=== PATIENT | male | born 1995 | race American Indian/Alaskan Native ===

== ENCOUNTER 2021-03-19 19:35 | Emergency (ER) | payer SELFPAY ==
[2021-03-19 22:17] VITALS: BP 133/81
--- NOTE | 2021-03-19 22:18 | Emergency Department Report ---
ED Head Trauma HPI - General Chief complaint: Head Injury Stated complaint: PASSED OUT 2 DAYS AGO/HEAD FEELING FUNNY Source: patient Mode of arrival: Ambulatory Limitations: No Limitations - History of Present Illness Initial comments: Patient is a 25-year-old -Japanese male with no past medical history presents to the ED for evaluation after getting drunk and having syncopal episode, hitting his head 4 days ago. Patient states that he came to the ED for evaluation because he has been feeling mild posterior scalp discomfort on palpation. Patient states that he was at a [employer] party and drank a lot of alcohol and in the process while seated on talking to friends he fell on the floor but woke up thereafter about 1 minute later. Patient states that since that injury, he has not had any nausea, vomiting, dizziness, syncope, chest pain or shortness of breath, neck pain, change in vision, lack of appetite, change in speech, seizures, loss of consciousness, numbness and tingling or weakness of upper and lower extremities bilaterally. MD Complaint: head injury, other (wanted evaluation for a head injury 4 days ago) -: Sudden, days(s) (4) Arrival Conditions: Negative: C-spine immobilization present, spinal board immobilization present Mechanism of Injury: mechanical fall Location: occipital Loss of Consciousness: unsure (was intoxicated) Previous Trauma to this Area: No Place: home Radiation: none Severity: mild (no pain) Severity scale (0 -10): 0 Consistency: now resolved Provoking factors: none known Other Injuries: none Associated Symptoms: denies other symptoms. denies: confusion, amnesia, repetitive questioning, vision changes, nausea, vomiting, vertigo, syncope, numbness, weakness, neck pain, other - Related Data Allergies/Adverse reactions: Allergies Allergy/AdvReac Type Severity Reaction Status Date / Time No Known Allergies Allergy Unverified 03/19/21 22:08 ED Review of Systems ROS: Stated complaint: PASSED OUT 2 DAYS AGO/HEAD FEELING FUNNY Other details as noted in HPI Constitutional: denies: chills, fever Eyes: denies: eye pain, eye discharge, vision change ENT: other (Mild posterior scalp discomfort). denies: ear pain, throat pain Respiratory: denies: cough, shortness of breath, wheezing Cardiovascular: denies: chest pain, palpitations Endocrine: no symptoms reported Gastrointestinal: denies: abdominal pain, nausea, diarrhea Genitourinary: denies: urgency, dysuria Musculoskeletal: denies: back pain, joint swelling, arthralgia Skin: denies: rash, lesions Neurological: denies: headache, weakness, paresthesias Psychiatric: denies: anxiety, depression Hematological/Lymphatic: denies: easy bleeding, easy bruising ED Past Medical Hx - Past Medical History Previous Medical History?: No - Surgical History Past Surgical History?: No ED Physical Exam - General Limitations: No Limitations General appearance: alert, in no apparent distress - Head Head exam: Present: atraumatic, normocephalic, normal inspection - Eye Eye exam: Present: normal appearance, PERRL, EOMI Pupils: Present: normal accommodation - ENT ENT exam: Present: normal exam, normal orophraynx, mucous membranes moist, TM's normal bilaterally, normal external ear exam - Neck Neck exam: Present: normal inspection, full ROM - Respiratory Respiratory exam: Present: normal lung sounds bilaterally. Absent: respiratory distress, wheezes, rales, stridor, chest wall tenderness, accessory muscle use, decreased breath sounds, prolonged expiratory - Cardiovascular Cardiovascular Exam: Present: regular rate, normal rhythm, normal heart sounds. Absent: systolic murmur, diastolic murmur, rubs, gallop - GI/Abdominal GI/Abdominal exam: Present: soft, normal bowel sounds. Absent: tenderness, guarding, hyperactive bowel sounds, hypoactive bowel sounds, organomegaly - Extremities Exam Extremities exam: Present: normal inspection, full ROM, normal capillary refill - Back Exam Back exam: Present: normal inspection, full ROM. Absent: tenderness, CVA tenderness (R), CVA tenderness (L), muscle spasm, paraspinal tenderness, vertebral tenderness - Neurological Exam Neurological exam: Present: alert, oriented X3, CN II-XII intact, normal gait, reflexes normal - Psychiatric Psychiatric exam: Present: normal affect, normal mood - Skin Skin exam: Present: warm, dry, intact, normal color. Absent: rash ED Course Vital Signs 03/19/21 22:09 Temperature 98.6 F Pulse Rate 77 Respiratory 18 Rate Blood Pressure 133/81 O2 Sat by Pulse 98 Oximetry - Medical Decision Making This is a 25-year-old -Japanese male with no past medical history presents to the ED for evaluation after getting drunk and having syncopal episode, hitting his head 4 days ago. Patient states that he came to the ED for evaluation because he has been feeling mild posterior scalp discomfort on palpation. Patient states that he was at a [employer] party and drank a lot of alcohol and in the process while seated on talking to friends he fell on the floor but woke up thereafter about 1 minute later. In the ED, patient is alert and oriented x3 and is not in any distress. Patient is hemodynamically stable. Physical exam is unremarkable and patient is fully ambulatory and has not had any neurological symptoms in the last 4 days after his head injury. Patient was discharged home and advised to follow-up with his primary care physician as needed. Patient was otherwise advised return to the ED immediately should he develop any headache, dizziness, syncope, seizures, shortness of breath, change in vision or neck pain. - Differential Diagnosis Scalp contusion; well adult exam - Core Measures AMI Core Measures Followed: No Measure Exclusions: not indicated - NEXUS Criteria Focal neurological deficit present: No Midline spinal tenderness present: No Altered level of consciousness: No Intoxication present: No Distracting injury present: No NEXUS results: C-Spine can be cleared clinically by these results. Imaging is not required. Critical care attestation.: If time is entered above; I have spent that time in minutes in the direct care of this critically ill patient, excluding procedure time. ED Disposition Clinical Impression: Contusion of scalp Qualifiers: Encounter type: initial encounter Qualified Code(s): S00.03XA - Contusion of sc alp, initial encounter Disposition: HOME / SELF CARE / HOMELESS Is pt being admited?: No Does the pt Need Aspirin: No Condition: Stable Instructions: Facial or Scalp Contusion, [id number] Additional Instructions: Follow-up with your primary care physician as needed. Return to the ED immediately if symptoms get worse. Referrals: [facility] [Provider Group] - 3-5 Days Time of Disposition: 22:17 Print Language: BRITISH
== END 2021-03-19 22:29 | disposition home or self-care (01) ==
LOC: ED 19:35
DX: S00.03XA Contusion of scalp, initial encounter (principal); X58.XXXA Exposure to other specified factors, initial encounter; Y93.89 Activity, other specified; Y92.89 Other specified places as the place of occurrence of the external cause; Y99.0 Civilian activity done for income or pay
CPT/HCPCS: 99281

== ENCOUNTER 2022-01-16 17:35 | Emergency (ER) | payer SELFPAY ==
[2022-01-16 18:00] VITALS: BP 132/82
== END 2022-01-17 02:10 | disposition left against medical advice (07) ==
LOC: ED 17:35
DX: R07.0 Pain in throat (principal); L50.9 Urticaria, unspecified; Z53.21 Procedure and treatment not carried out due to patient leaving prior to being seen by health care provider